=== PATIENT | female | born 1945 | race Caucasian/White ===

== ENCOUNTER 2023-08-27 17:39 | Inpatient (IN) | payer MEDICARE, BC ==
[~2023-08-27] VITALS: Ht 152.4 cm; Wt 41.7 kg
[2023-08-27 19:38] LABS: BASOPHILS % (AUTO) 0.6 % (0.0-2.0); EOSINOPHILS # (AUTO) 0.1 K/uL (0.0-0.7); EOSINOPHILS % (AUTO) 2.2 % (0.0-6.0); HEMATOCRIT 40 % (33-45); HEMOGLOBIN 13.3 g/dL (11.5-14.8); LYMPHOCYTES # (AUTO) 1.2 K/uL (0.8-4.8); LYMPHOCYTES % (AUTO) 29.3 % (20.0-44.0); MEAN CORPUSCULAR HEMOGLOBIN 32 PG (26.0-33.0); MEAN CORPUSCULAR HGB CONC 34 g/dl (31.0-36.0); MEAN CORPUSCULAR VOLUME 96 fL (82-100); MONOCYTES # (AUTO) 0.4 K/uL (0.1-1.30); NEUTROPHILS # (AUTO) 2.3 K/uL (1.8-8.9); NEUTROPHILS % (AUTO) 57.9 % (43.0-81.0); PLATELET COUNT (AUTO) 125 K/uL (150-450); RED CELL DISTRIBUTION WIDTH 13.4 % (11.5-15.0)
[2023-08-27 19:44] LABS: CARBON DIOXIDE 30 mmol/L (21-32); CHLORIDE 107 mmol/L (98-107); GLUCOSE 122 mg/dL (74-106); POTASSIUM 3.9 mmol/L (3.5-5.1); SODIUM SERUM 140 mmol/L (136-145); UREA NITROGEN, BLOOD 34 mg/dL (7-18)
[2023-08-27 19:50] LABS: ALANINE AMINOTRANSFERASE 24 U/L (12-78); ALBUMIN 3.3 g/dL (3.4-5.0); ALCOHOL, BLOOD < 3 mg/dL (0-10); ALKALINE PHOSPHATASE 60 U/L (46-116); ASPARTATE AMINOTRANSFERASE 20 U/L (15-37); BILIRUBIN,DIRECT 0.1 mg/dL (0.0-0.2); BILIRUBIN,TOTAL 0.3 mg/dL (0.2-1.0); TOTAL PROTEIN, SERUM 6.8 g/dL (6.4-8.2)
[2023-08-27 19:52] LABS: APPEARANCE,URINE Clear (CLEAR); BILIRUBIN,URINE Negative (NEGATIVE); BLOOD, URINE Moderate Ery/uL (NEGATIVE); COLOR,URINE YELLOW (YELLOW); KETONES,URINE 15 mg/dL (NEGATIVE); LEUKOCYTE ESTERASE ,URINE Negative (NEGATIVE); NITRITE, URINE Negative (NEGATIVE); PH,URINE 5.5 (5.0-8.0); PROTEIN,URINE Negative (NEGATIVE); UGLUCOSE Negative (NEGATIVE); UROBILINOGEN,URINE 0.2 EU/dL (0.2)
[2023-08-27 19:53] LABS: ACETAMINOPHEN 0 ug/ml (10-30); SALICYLATE 0.5 mg/dL (2.8-20.0)
[2023-08-27 19:59] LABS: AMPHETAMINE, URINE NEGATIVE (NEGATIVE); BARBITURATE, URINE NEGATIVE (NEGATIVE); BENZODIAZEPINE, URINE NEGATIVE (NEGATIVE); CANNABINOID, URINE NEGATIVE (NEGATIVE); COCCAINE, URINE NEGATIVE (NEGATIVE); OPIATE, URINE NEGATIVE (NEGATIVE); PHENCYCLIDINE SCREEN,URINE NEGATIVE (NEGATIVE)
[2023-08-27 20:04] LABS: ADD URINE CULTURE NO; BACTERIA,URINE Few /HPF (None Seen); CALCIUM OXALATE CRYSTALS,UR Few /HPF (None Seen); SQUAMOUS EPITHELIAL CELL,UR Few /HPF (None Seen); WBC,URINE 0-2 /HPF (0-3)
[2023-08-27] MEDS ORDERED: ONDANSETRON 4 MG TAB.RAPDIS ONE (21:00)
[2023-08-27] MEDS: ONDANSETRON 4 MG TAB.RAPDIS SL ONE (21:01)
[2023-08-27] MEDS ORDERED: MAGN400O21 PO (22:06)
[2023-08-27] MEDS ORDERED: METF-440 PO (22:06)
[2023-08-27] MEDS ORDERED: MINE133E RC (22:06)
[2023-08-27] MEDS ORDERED: LEVO125T8 PO (22:06)
[2023-08-27] MEDS ORDERED: DIVA250T PO (22:06)
[2023-08-27] MEDS ORDERED: MELA3CAP2 PO (22:06)
[2023-08-27] MEDS ORDERED: MELO7.5T12 PO (22:06)
[2023-08-27] MEDS ORDERED: MIRT-121 PO (22:06)
[2023-08-27] MEDS ORDERED: BISA10SU61 RC (22:06)
[2023-08-27] MEDS ORDERED: ACETAMINOPHEN 325 MG TABLET PO PRN (23:30)
[2023-08-27] MEDS ORDERED: MAGNESIUM HYDROXIDE 30 ML UDC PO PRN (23:30)
[2023-08-27] MEDS ORDERED: VITA1TAB56 PO (23:36)
[2023-08-27] MEDS ORDERED: CYAN500T64 PO (23:37)
[2023-08-27] MEDS: BLOOD SUGAR DIAGNOSTIC 1 EACH STRIP IN ONE (23:40)
[2023-08-28 00:36] VITALS: BP 105/66; TEMP 98; O2SAT 98
[2023-08-28 04:19] VITALS: BP 105/66; TEMP 98.3; O2SAT 100
[2023-08-28 08:00] VITALS: BP_SYST 111; BP_SYST 125; BP_DIAS 63; BP_DIAS 71; TEMP 97.6; TEMP 97.7; O2SAT 95; O2SAT 96
[2023-08-28] MEDS: GLUCERNA SHAKE 237 ML CAN PO SCH (08:00)
[2023-08-28] MEDS: LEVOTHYROXINE SODIUM 125 MCG TABLET PO SCH (08:46)
[2023-08-28] MEDS: CYANOCOBALAMIN 500 MCG TABLET PO SCH (08:46)
[2023-08-28] MEDS: MELOXICAM 7.5 MG TABLET PO SCH (08:46)
[2023-08-28] MEDS: METFORMIN 500 MG TABLET PO SCH (08:46)
[2023-08-28 20:00] VITALS: BP 100/67; TEMP 98; O2SAT 100
[2023-08-28] MEDS: QUETIAPINE FUMARATE 25 MG TABLET PO SCH (21:10)
[2023-08-28] MEDS ORDERED: MIRTAZAPINE 15 MG TABLET PO SCH (22:00)
[2023-08-28] MEDS ORDERED: MELATONIN PO SCH (22:00)
[2023-08-29 07:50] LABS: BASOPHILS % (AUTO) 0.6 % (0.0-2.0); EOSINOPHILS # (AUTO) 0.1 K/uL (0.0-0.7); EOSINOPHILS % (AUTO) 2.1 % (0.0-6.0); HEMATOCRIT 38 % (33-45); HEMOGLOBIN 12.9 g/dL (11.5-14.8); LYMPHOCYTES # (AUTO) 1.3 K/uL (0.8-4.8); LYMPHOCYTES % (AUTO) 22.9 % (20.0-44.0); MEAN CORPUSCULAR HEMOGLOBIN 33 PG (26.0-33.0); MEAN CORPUSCULAR HGB CONC 34 g/dl (31.0-36.0); MEAN CORPUSCULAR VOLUME 97 fL (82-100); MONOCYTES # (AUTO) 0.5 K/uL (0.1-1.30); MONOCYTES % (AUTO) 9.4 % (2.0-12.0); NEUTROPHILS # (AUTO) 3.6 K/uL (1.8-8.9); PLATELET COUNT (AUTO) 106 K/uL (150-450); RED BLOOD CELL COUNT(AUTO) 3.89 MIL/uL (4.0-5.2); RED CELL DISTRIBUTION WIDTH 13.3 % (11.5-15.0); WHITE BLOOD COUNT (AUTO) 5.6 K/uL (4.3-11.0)
[2023-08-29 08:00] VITALS: BP 90/53; TEMP 97.7; O2SAT 98
[2023-08-29 08:06] LABS: CALCIUM, SERUM 8.3 mg/dL (8.5-10.1); CARBON DIOXIDE 28 mmol/L (21-32); CHLORIDE 107 mmol/L (98-107); CREATININE 0.6 mg/dL (0.6-1.3); GLUCOSE 79 mg/dL (74-106); POTASSIUM 3.9 mmol/L (3.5-5.1); SODIUM SERUM 143 mmol/L (136-145); UREA NITROGEN, BLOOD 26 mg/dL (7-18)
[2023-08-29 08:26] LABS: CHOLESTEROL 157 mg/dL (<200); HDL CHOLESTEROL 65 mg/dL (40-60); LDL 78 mg/dL (0-99); TRIGLYCERIDES 84 mg/dL (30-150)
[2023-08-29] MEDS: LIDOCAINE 5% (PATCH) 1 EA PATCH TP SCH (14:30)
[2023-08-29 16:00] VITALS: BP 139/62; TEMP 97.6; O2SAT 100
[2023-08-29 20:30] VITALS: BP 128/69; TEMP 98; O2SAT 99
[2023-08-29] MEDS: OXCARBAZEPINE 150 MG TABLET PO SCH (21:00)
[2023-08-30 08:00] VITALS: BP 96/61; TEMP 97.5; O2SAT 98
[2023-08-30 16:00] VITALS: BP 97/58; TEMP 98.3; O2SAT 98
[2023-08-30 20:31] VITALS: BP 102/59; TEMP 97.7; O2SAT 98
[2023-08-30] MEDS: ZOLPIDEM TARTRATE 5 MG TABLET PO PRN (21:37)
[2023-08-31 08:00] VITALS: BP 110/73; TEMP 98; O2SAT 96
[2023-08-31] MEDS: OLANZAPINE 10 MG VIAL IM STA (13:23)
[2023-08-31] MEDS: OXCARBAZEPINE 150 MG TABLET PO SCH (14:00)
[2023-08-31] MEDS: QUETIAPINE FUMARATE 25 MG TABLET PO PRN (14:44)
[2023-08-31 16:00] VITALS: BP 100/61; TEMP 97.9; O2SAT 98
[2023-08-31 20:00] VITALS: BP 98/65; TEMP 98.1; O2SAT 99
[2023-09-01 08:00] VITALS: BP 110/78; TEMP 98.7; O2SAT 98
[2023-09-01] MEDS: OLANZAPINE 10 MG VIAL IM STA (13:10)
[2023-09-01 16:00] VITALS: BP 99/51; TEMP 98.6; O2SAT 99
[2023-09-01 20:32] VITALS: BP 128/70; TEMP 98.1; O2SAT 98
[2023-09-02 08:00] VITALS: BP 132/63; TEMP 97.9; O2SAT 97
[2023-09-02] MEDS: QUETIAPINE FUMARATE 25 MG TABLET PO SCH (08:19)
[2023-09-02 16:00] VITALS: BP 110/55; TEMP 98.6; O2SAT 100
[2023-09-02 20:36] VITALS: BP 146/55; TEMP 98.2; O2SAT 97
[2023-09-03 08:00] VITALS: BP 136/69; TEMP 98; O2SAT 97
[2023-09-03 16:00] VITALS: BP 120/65; TEMP 98; O2SAT 99
[2023-09-03 20:00] VITALS: BP 125/70; TEMP 98.2; O2SAT 98
[2023-09-04 08:00] VITALS: BP 105/58; TEMP 97.8; O2SAT 100
[2023-09-04 16:00] VITALS: BP 119/68; TEMP 98; O2SAT 98
[2023-09-04 20:00] VITALS: BP 118/52; TEMP 97.8; O2SAT 97
[2023-09-05 08:00] VITALS: BP 113/59; TEMP 97.8; O2SAT 99
[2023-09-05] MEDS: QUETIAPINE FUMARATE 25 MG TABLET PO SCH (08:55)
[2023-09-05 10:16] LABS: BASOPHILS % (AUTO) 0.8 % (0.0-2.0); EOSINOPHILS # (AUTO) 0.1 K/uL (0.0-0.7); EOSINOPHILS % (AUTO) 3.4 % (0.0-6.0); HEMATOCRIT 40 % (33-45); HEMOGLOBIN 13.6 g/dL (11.5-14.8); LYMPHOCYTES # (AUTO) 0.8 K/uL (0.8-4.8); LYMPHOCYTES % (AUTO) 21.1 % (20.0-44.0); MEAN CORPUSCULAR HEMOGLOBIN 33 PG (26.0-33.0); MEAN CORPUSCULAR HGB CONC 34 g/dl (31.0-36.0); MEAN CORPUSCULAR VOLUME 98 fL (82-100); MONOCYTES # (AUTO) 0.3 K/uL (0.1-1.30); MONOCYTES % (AUTO) 7.9 % (2.0-12.0); NEUTROPHILS # (AUTO) 2.5 K/uL (1.8-8.9); NEUTROPHILS % (AUTO) 66.8 % (43.0-81.0); PLATELET COUNT (AUTO) 119 K/uL (150-450); RED BLOOD CELL COUNT(AUTO) 4.12 MIL/uL (4.0-5.2); WHITE BLOOD COUNT (AUTO) 3.7 K/uL (4.3-11.0)
[2023-09-05 16:20] VITALS: BP 120/97; TEMP 97.7; O2SAT 98
[2023-09-05 20:00] VITALS: BP 107/53; TEMP 97.6; O2SAT 96
[2023-09-05] MEDS: OXCARBAZEPINE 150 MG TABLET PO SCH (21:02)
[2023-09-06 08:00] VITALS: BP 151/60; TEMP 98; O2SAT 98
[2023-09-06 16:08] VITALS: BP 103/52; TEMP 97.9; O2SAT 97
[2023-09-06 20:35] VITALS: BP 115/53; TEMP 98; O2SAT 97
[2023-09-06] MEDS: MAG HYDROX/AL HYDROX/SIMETH 30 ML UDC PO PRN (23:13)
[2023-09-07] MEDS: ONDANSETRON HCL/PF 4 MG/2 ML VIAL IM ONE
[2023-09-07] MEDS ORDERED: ONDANSETRON HCL 4 MG/5 ML SOLUTION PO PRN
[2023-09-07] MEDS: ONDANSETRON 4 MG TAB.RAPDIS PO PRN (00:33)
[2023-09-07] MEDS: BLOOD SUGAR DIAGNOSTIC 1 EACH STRIP IN ONE (01:09)
[2023-09-07 01:19] LABS: BASOPHILS % (AUTO) 0.3 % (0.0-2.0); EOSINOPHILS # (AUTO) 0.1 K/uL (0.0-0.7); HEMATOCRIT 36 % (33-45); LYMPHOCYTES # (AUTO) 0.7 K/uL (0.8-4.8); LYMPHOCYTES % (AUTO) 13.5 % (20.0-44.0); MEAN CORPUSCULAR HEMOGLOBIN 33 PG (26.0-33.0); MEAN CORPUSCULAR HGB CONC 34 g/dl (31.0-36.0); MEAN CORPUSCULAR VOLUME 98 fL (82-100); MONOCYTES # (AUTO) 0.4 K/uL (0.1-1.30); MONOCYTES % (AUTO) 7.7 % (2.0-12.0); NEUTROPHILS # (AUTO) 4.3 K/uL (1.8-8.9); NEUTROPHILS % (AUTO) 77.5 % (43.0-81.0); PLATELET COUNT (AUTO) 112 K/uL (150-450); RED BLOOD CELL COUNT(AUTO) 3.63 MIL/uL (4.0-5.2); RED CELL DISTRIBUTION WIDTH 14.2 % (11.5-15.0); WHITE BLOOD COUNT (AUTO) 5.5 K/uL (4.3-11.0)
[2023-09-07 01:31] LABS: CALCIUM, SERUM 8.4 mg/dL (8.5-10.1); CARBON DIOXIDE 25 mmol/L (21-32); CHLORIDE 105 mmol/L (98-107); CREATININE 0.8 mg/dL (0.6-1.3); GLUCOSE 206 mg/dL (74-106); POTASSIUM 3.6 mmol/L (3.5-5.1); SODIUM SERUM 141 mmol/L (136-145); UREA NITROGEN, BLOOD 32 mg/dL (7-18)
[2023-09-07] MEDS ORDERED: IV NS 0.9% 1,000 ML BAG IV ONE (02:30)
[2023-09-07] MEDS: IV NS 0.9% 1,000 ML BAG IV ONE (02:33)
[2023-09-07] MEDS ORDERED: DoBUTamine 500 MG/250 ML PIGGYBACK IV ONE (03:00)
[2023-09-07] MEDS ORDERED: IV NS 0.9% 1,000 ML IV SCH (03:00)
[2023-09-07] MEDS ORDERED: MAG30ORA PO (07:57)
[2023-09-07] MEDS ORDERED: QUET25TA PO ×2 (07:57)
[2023-09-07] MEDS ORDERED: OXCA150T13 PO (07:57)
[2023-09-07] MEDS ORDERED: LIDO30AD10 TP (07:57)
[2023-09-07] MEDS ORDERED: ACET-868 PO (07:57)
[2023-09-07] MEDS ORDERED: ZOLP5TAB2 PO (07:57)
[2023-09-07] MEDS ORDERED: NORM10004 IV (07:57)
[2023-09-07] MEDS ORDERED: ONDA4TAB5 PO (07:57)
[2023-09-07] MEDS ORDERED: NUT.237L28 PO (07:57)
== END 2023-09-07 03:20 | disposition short-term general hospital (02) | DRG 885 ==
LOC: EDUNIT# 17:39 → ER 17:58 → GPS 22:54
PROVIDERS: ADMIT Psychiatry & Neurology Psychiatry; ATTEND Nurse Practitioner Family
DX: F39 Unspecified mood [affective] disorder (principal); E44.1 Mild protein-calorie malnutrition; R64 Cachexia; Z68.1 Body mass index [BMI] 19.9 or less, adult; G93.40 Encephalopathy, unspecified; F03.911 Unspecified dementia, unspecified severity, with agitation; F03.93 Unspecified dementia, unspecified severity, with mood disturbance; F03.918 Unspecified dementia, unspecified severity, with other behavioral disturbance; F29 Unspecified psychosis not due to a substance or known physiological condition; E03.9 Hypothyroidism, unspecified; M19.90 Unspecified osteoarthritis, unspecified site; E11.9 Type 2 diabetes mellitus without complications; E88.09 Other disorders of plasma-protein metabolism, not elsewhere classified; Z87.891 Personal history of nicotine dependence; Z88.5 Allergy status to narcotic agent; Z20.822 Contact with and (suspected) exposure to COVID-19; Z73.6 Limitation of activities due to disability; F32.9 Major depressive disorder, single episode, unspecified
CPT/HCPCS: 36415; 71111-TC; 80048-TC; 80061-TC; 80076-TC; 81001; 84443-TC; 85025-TC; 87081-TC; 97112-TC; 97116-TC; 97530-TC; A4223; G0480; J2405; J3490; J7030; Q0162

== ENCOUNTER 2023-09-07 02:39 | Inpatient (IN) | payer MEDICARE, BC ==
[2023-09-07] VITALS (35 sets, daily range): BP systolic 98–147; BP diastolic 36–106; TEMP 97.2–98.9; O2SAT 92–100
[~2023-09-07] VITALS: Ht 152.4 cm; Wt 44.6 kg
[~2023-09-07 02:39] MED LIST: BISA10SU61 RC; CYAN500T64 PO; LEVO125T8 PO; MAGN400O21 PO; MELO7.5T12 PO; METF-440 PO; MINE133E RC; VITA1TAB56 PO
[2023-09-07] MEDS ORDERED: MAG HYDROX/AL HYDROX/SIMETH 30 ML UDC PO PRN (03:30)
[2023-09-07] MEDS ORDERED: Z GUARD REMEDY 4 OZ OINT TP PRN (03:30)
[2023-09-07] MEDS ORDERED: ONDANSETRON HCL/PF 4 MG/2 ML VIAL IVP PRN (03:30)
[2023-09-07] MEDS ORDERED: DEXTROSE 50%-WATER 50 ML DISP.SYRIN IV PRN (03:30)
[2023-09-07] MEDS ORDERED: ACETAMINOPHEN 325 MG TABLET PO PRN (03:30)
[2023-09-07] MEDS ORDERED: MAGNESIUM HYDROXIDE 30 ML UDC PO PRN ×2 (03:30)
[2023-09-07] MEDS ORDERED: DoBUTamine 500 MG/250 ML PIGGYBACK IV ONE (03:30)
[2023-09-07] MEDS: IV NS 0.9% 1,000 ML IV SCH (03:44)
[2023-09-07] MEDS: DOBUTamine 500 MG in IV D5W 210 ML IV PRN (03:59)
[2023-09-07] MEDS: DoBUTamine 500 MG/250 ML PIGGYBACK IV ONE (04:04)
[2023-09-07 04:05] LABS: ALANINE AMINOTRANSFERASE 144 U/L (12-78); ALBUMIN 2.8 g/dL (3.4-5.0); ALKALINE PHOSPHATASE 118 U/L (46-116); ASPARTATE AMINOTRANSFERASE 73 U/L (15-37); BILIRUBIN,DIRECT 0.3 mg/dL (0.0-0.2); BILIRUBIN,TOTAL 0.5 mg/dL (0.2-1.0); TOTAL PROTEIN, SERUM 6.3 g/dL (6.4-8.2)
[2023-09-07] MEDS: BLOOD SUGAR DIAGNOSTIC 1 EACH STRIP IN SCH (07:30)
[2023-09-07] MEDS ORDERED: ZOLP5TAB2 PO (07:57)
[2023-09-07] MEDS ORDERED: ONDA4TAB5 PO (07:57)
[2023-09-07] MEDS ORDERED: QUET25TA PO ×2 (07:57)
[2023-09-07] MEDS ORDERED: OXCA150T13 PO (07:57)
[2023-09-07] MEDS ORDERED: LIDO30AD10 TP (07:57)
[2023-09-07] MEDS ORDERED: NUT.237L28 PO (07:57)
[2023-09-07] MEDS ORDERED: ACET-868 PO (07:57)
[2023-09-07] MEDS ORDERED: NORM10004 IV (07:57)
[2023-09-07] MEDS ORDERED: MAG30ORA PO (07:57)
[2023-09-07] MEDS: MELOXICAM 7.5 MG TABLET PO SCH (08:00)
[2023-09-07] MEDS: LEVOTHYROXINE SODIUM 125 MCG TABLET PO SCH (08:00)
[2023-09-07] MEDS: OLANZAPINE 10 MG VIAL IM ONE (08:13)
[2023-09-07] MEDS: CYANOCOBALAMIN 500 MCG TABLET PO SCH (09:30)
[2023-09-07] MEDS: PANTOPRAZOLE 40 MG VIAL IV SCH (09:30)
[2023-09-07] MEDS: VITAMIN B COMP W-C 1 TAB TABLET PO SCH (09:30)
[2023-09-07] MEDS: IV NS 0.9% 1,000 ML IV PRN (11:13)
[2023-09-07 15:07] LABS: MAGNESIUM 2.3 mg/dL (1.8-2.4); PHOSPHORUS 3.2 mg/dL (2.5-4.9)
[2023-09-07] MEDS: INSULIN REGULAR, HUMAN 100 UNIT/ML 3 ML VIAL SQ PRN (22:31)
[2023-09-08] VITALS (20 sets, daily range): BP systolic 123–160; BP diastolic 53–97; TEMP 98.1–98.9; O2SAT 89–100
[2023-09-08 04:41] LABS: BASOPHILS % (AUTO) 0.6 % (0.0-2.0); EOSINOPHILS # (AUTO) 0.2 K/uL (0.0-0.7); HEMATOCRIT 35 % (33-45); HEMOGLOBIN 12.2 g/dL (11.5-14.8); LYMPHOCYTES # (AUTO) 1.4 K/uL (0.8-4.8); LYMPHOCYTES % (AUTO) 20.5 % (20.0-44.0); MEAN CORPUSCULAR HEMOGLOBIN 34 PG (26.0-33.0); MEAN CORPUSCULAR HGB CONC 35 g/dl (31.0-36.0); MEAN CORPUSCULAR VOLUME 97 fL (82-100); MONOCYTES # (AUTO) 0.6 K/uL (0.1-1.30); MONOCYTES % (AUTO) 8.1 % (2.0-12.0); NEUTROPHILS # (AUTO) 4.7 K/uL (1.8-8.9); NEUTROPHILS % (AUTO) 67.8 % (43.0-81.0); PLATELET COUNT (AUTO) 118 K/uL (150-450); RED BLOOD CELL COUNT(AUTO) 3.64 MIL/uL (4.0-5.2); RED CELL DISTRIBUTION WIDTH 14.6 % (11.5-15.0); WHITE BLOOD COUNT (AUTO) 6.9 K/uL (4.3-11.0)
[2023-09-08 04:57] LABS: CALCIUM, SERUM 8.1 mg/dL (8.5-10.1); CARBON DIOXIDE 24 mmol/L (21-32); CHLORIDE 110 mmol/L (98-107); CREATININE 0.8 mg/dL (0.6-1.3); GLUCOSE 85 mg/dL (74-106); PHOSPHORUS 2.3 mg/dL (2.5-4.9); POTASSIUM 3.5 mmol/L (3.5-5.1); SODIUM SERUM 143 mmol/L (136-145); UREA NITROGEN, BLOOD 18 mg/dL (7-18)
[2023-09-08] MEDS ORDERED: QUETIAPINE FUMARATE 25 MG TABLET PO PRN (21:30)
[2023-09-08] MEDS: K PHOS NEUTRAL 250 MG TABLET PO ONE (21:39)
[2023-09-09 04:00] VITALS: BP 132/55; TEMP 98.2; O2SAT 98
[2023-09-09 06:51] LABS: BASOPHILS % (AUTO) 0.7 % (0.0-2.0); EOSINOPHILS # (AUTO) 0.1 K/uL (0.0-0.7); EOSINOPHILS % (AUTO) 1.8 % (0.0-6.0); HEMATOCRIT 34 % (33-45); HEMOGLOBIN 11.4 g/dL (11.5-14.8); LYMPHOCYTES # (AUTO) 0.8 K/uL (0.8-4.8); LYMPHOCYTES % (AUTO) 16.4 % (20.0-44.0); MEAN CORPUSCULAR HEMOGLOBIN 33 PG (26.0-33.0); MEAN CORPUSCULAR HGB CONC 34 g/dl (31.0-36.0); MEAN CORPUSCULAR VOLUME 98 fL (82-100); MONOCYTES # (AUTO) 0.4 K/uL (0.1-1.30); MONOCYTES % (AUTO) 8.7 % (2.0-12.0); NEUTROPHILS # (AUTO) 3.7 K/uL (1.8-8.9); NEUTROPHILS % (AUTO) 72.4 % (43.0-81.0); PLATELET COUNT (AUTO) 105 K/uL (150-450); RED BLOOD CELL COUNT(AUTO) 3.48 MIL/uL (4.0-5.2); RED CELL DISTRIBUTION WIDTH 14.3 % (11.5-15.0); WHITE BLOOD COUNT (AUTO) 5.1 K/uL (4.3-11.0)
[2023-09-09 07:34] LABS: CALCIUM, SERUM 8.1 mg/dL (8.5-10.1); CARBON DIOXIDE 26 mmol/L (21-32); CHLORIDE 110 mmol/L (98-107); CREATININE 0.4 mg/dL (0.6-1.3); GLUCOSE 78 mg/dL (74-106); MAGNESIUM 1.9 mg/dL (1.8-2.4); PHOSPHORUS 2.8 mg/dL (2.5-4.9); SODIUM SERUM 143 mmol/L (136-145); UREA NITROGEN, BLOOD 6 mg/dL (7-18)
[2023-09-09] MEDS: PANTOPRAZOLE 40 MG TABLET.DR PO SCH (07:59)
[2023-09-09] MEDS: OXCARBAZEPINE 150 MG TABLET PO SCH (08:30)
[2023-09-09] MEDS: POTASSIUM CHLORIDE 20 MEQ TAB.PRT.SR PO SCH (09:51)
[2023-09-09 13:00] VITALS: BP 138/66; TEMP 97.7; O2SAT 95
[2023-09-09] MEDS ORDERED: QUETIAPINE FUMARATE 25 MG TABLET PO SCH (21:00)
== END 2023-09-09 15:50 | DRG 309 ==
LOC: ICU 02:39 → MEDSG1 09-08 17:55
PROVIDERS: ADMIT Nurse Practitioner Acute Care; ATTEND Internal Medicine
DX: R00.1 Bradycardia, unspecified (principal); E44.1 Mild protein-calorie malnutrition; F03.93 Unspecified dementia, unspecified severity, with mood disturbance; F03.92 Unspecified dementia, unspecified severity, with psychotic disturbance; G93.40 Encephalopathy, unspecified; Z68.1 Body mass index [BMI] 19.9 or less, adult; F03.918 Unspecified dementia, unspecified severity, with other behavioral disturbance; E11.9 Type 2 diabetes mellitus without complications; E03.9 Hypothyroidism, unspecified; M19.90 Unspecified osteoarthritis, unspecified site; F39 Unspecified mood [affective] disorder; E88.09 Other disorders of plasma-protein metabolism, not elsewhere classified; F29 Unspecified psychosis not due to a substance or known physiological condition; F32.9 Major depressive disorder, single episode, unspecified; R74.01 Elevation of levels of liver transaminase levels; Z20.822 Contact with and (suspected) exposure to COVID-19
CPT/HCPCS: 36415; 71045-TC; 80048-TC; 80076-TC; 82962-TC; 83605-TC; 83735-TC; 84100-TC; 84439-TC; 84484-TC; 85025-TC; 87040-TC; 87081-TC; 87086-TC; 93307-TC; A4223; G0378; J1250; J1815; J2470; J3490; J7030

== ENCOUNTER 2023-09-09 15:43 | Inpatient (IN) | payer MEDICARE, BC ==
[~2023-09-09] VITALS: Ht 152.4 cm; Wt 44.5 kg
[~2023-09-09 15:43] MED LIST changes: +ACET-868 PO; -BISA10SU61 RC; -LEVO125T8 PO; +LIDO30AD10 TP; +MAG30ORA PO; -MINE133E RC; +NUT.237L28 PO; +ONDA4TAB5 PO; +OXCA150T13 PO; +QUET25TA PO; +ZOLP5TAB2 PO
[2023-09-09] MEDS ORDERED: ZOLPIDEM TARTRATE 5 MG TABLET PO PRN ×2 (17:30→19:30)
[2023-09-09] MEDS ORDERED: QUETIAPINE FUMARATE 25 MG TABLET PO PRN ×2 (17:30→19:30)
[2023-09-09] MEDS ORDERED: MAGNESIUM HYDROXIDE 30 ML UDC PO PRN ×2 (17:30→19:30)
[2023-09-09] MEDS: BLOOD SUGAR DIAGNOSTIC 1 EACH STRIP IN ONE (17:46)
[2023-09-09] MEDS ORDERED: ONDANSETRON 4 MG TAB.RAPDIS PO PRN (19:30)
[2023-09-09] MEDS ORDERED: ACETAMINOPHEN 325 MG TABLET PO PRN (19:30)
[2023-09-09] MEDS ORDERED: MAG HYDROX/AL HYDROX/SIMETH 30 ML UDC PO PRN (19:30)
[2023-09-09 20:00] VITALS: BP 125/65; TEMP 98.1; O2SAT 98
[2023-09-09 20:26] VITALS: BP 125/65; TEMP 98.1; O2SAT 98
[2023-09-09] MEDS: ACETAMINOPHEN 325 MG TABLET PO PRN (23:35)
[2023-09-10 07:48] LABS: ALANINE AMINOTRANSFERASE 110 U/L (12-78); ALBUMIN 2.5 g/dL (3.4-5.0); ALKALINE PHOSPHATASE 104 U/L (46-116); ASPARTATE AMINOTRANSFERASE 47 U/L (15-37); BILIRUBIN,TOTAL 0.8 mg/dL (0.2-1.0); CALCIUM, SERUM 8.3 mg/dL (8.5-10.1); CARBON DIOXIDE 24 mmol/L (21-32); CHLORIDE 112 mmol/L (98-107); CREATININE 0.7 mg/dL (0.6-1.3); GLUCOSE 82 mg/dL (74-106); SODIUM SERUM 145 mmol/L (136-145); TOTAL PROTEIN, SERUM 5.8 g/dL (6.4-8.2); UREA NITROGEN, BLOOD 9 mg/dL (7-18)
[2023-09-10 07:50] LABS: CHOLESTEROL 150 mg/dL (<200); HDL CHOLESTEROL 61 mg/dL (40-60); LDL 79 mg/dL (0-99); TRIGLYCERIDES 56 mg/dL (30-150)
[2023-09-10 08:00] VITALS: BP 137/58; TEMP 97.9; O2SAT 97
[2023-09-10] MEDS ORDERED: OXCARBAZEPINE 150 MG TABLET PO SCH (09:00)
[2023-09-10] MEDS: MELOXICAM 7.5 MG TABLET PO SCH (09:01)
[2023-09-10] MEDS: LIDOCAINE 5% (PATCH) 1 EA PATCH TP SCH (09:01)
[2023-09-10] MEDS: GLUCERNA SHAKE 237 ML CAN PO SCH (09:01)
[2023-09-10] MEDS: CYANOCOBALAMIN 500 MCG TABLET PO SCH (09:02)
[2023-09-10] MEDS: METFORMIN 500 MG TABLET PO SCH (12:12)
[2023-09-10] MEDS: OXCARBAZEPINE 150 MG TABLET PO SCH (12:19)
[2023-09-10 16:00] VITALS: BP 150/83; TEMP 98.2; O2SAT 96
[2023-09-10] MEDS: POTASSIUM CHLORIDE 20 MEQ TAB.PRT.SR PO ONE (16:27)
[2023-09-10] MEDS: MAG HYDROX/AL HYDROX/SIMETH 30 ML UDC PO PRN (16:55)
[2023-09-10 17:33] LABS: CREATININE 0.8 mg/dL (0.6-1.3)
[2023-09-10 20:00] VITALS: BP 139/61; TEMP 98.3; O2SAT 100
[2023-09-10] MEDS: QUETIAPINE FUMARATE 25 MG TABLET PO SCH (20:52)
[2023-09-10] MEDS ORDERED: QUETIAPINE FUMARATE 25 MG TABLET PO SCH (21:00)
[2023-09-11 08:00] VITALS: BP 134/60; TEMP 98.2; O2SAT 98
[2023-09-11 16:00] VITALS: BP 97/66; TEMP 97.7; O2SAT 96
[2023-09-11 21:00] VITALS: BP 123/69; TEMP 98; O2SAT 98
[2023-09-12 08:00] VITALS: BP 105/59; TEMP 98.2; O2SAT 96
[2023-09-12 16:00] VITALS: BP 136/66; TEMP 98.3; O2SAT 99
[2023-09-12 20:00] VITALS: BP 130/68; TEMP 98.1; O2SAT 98
[2023-09-13 06:52] LABS: BASOPHILS % (AUTO) 1.2 % (0.0-2.0); EOSINOPHILS # (AUTO) 0.2 K/uL (0.0-0.7); EOSINOPHILS % (AUTO) 7.2 % (0.0-6.0); HEMATOCRIT 33 % (33-45); HEMOGLOBIN 11.5 g/dL (11.5-14.8); LYMPHOCYTES % (AUTO) 29.2 % (20.0-44.0); MEAN CORPUSCULAR HEMOGLOBIN 34 PG (26.0-33.0); MEAN CORPUSCULAR HGB CONC 35 g/dl (31.0-36.0); MEAN CORPUSCULAR VOLUME 97 fL (82-100); MONOCYTES # (AUTO) 0.4 K/uL (0.1-1.30); MONOCYTES % (AUTO) 11.3 % (2.0-12.0); NEUTROPHILS # (AUTO) 1.7 K/uL (1.8-8.9); NEUTROPHILS % (AUTO) 51.1 % (43.0-81.0); PLATELET COUNT (AUTO) 122 K/uL (150-450); RED BLOOD CELL COUNT(AUTO) 3.41 MIL/uL (4.0-5.2); RED CELL DISTRIBUTION WIDTH 14.6 % (11.5-15.0); WHITE BLOOD COUNT (AUTO) 3.4 K/uL (4.3-11.0)
[2023-09-13 07:37] LABS: CALCIUM, SERUM 8.4 mg/dL (8.5-10.1); CARBON DIOXIDE 32 mmol/L (21-32); CHLORIDE 108 mmol/L (98-107); CREATININE 0.5 mg/dL (0.6-1.3); GLUCOSE 82 mg/dL (74-106); PHOSPHORUS 3.6 mg/dL (2.5-4.9); POTASSIUM 3.3 mmol/L (3.5-5.1); SODIUM SERUM 144 mmol/L (136-145); UREA NITROGEN, BLOOD 17 mg/dL (7-18)
[2023-09-13 08:00] VITALS: BP 131/57; TEMP 97.9; O2SAT 98
[2023-09-13] MEDS: POTASSIUM CHLORIDE 20 MEQ TAB.PRT.SR PO SCH (10:05)
[2023-09-13] MEDS: busPIRone 5 MG TABLET PO SCH (10:05)
[2023-09-13 16:00] VITALS: BP 109/52; TEMP 97.9; O2SAT 96
[2023-09-13 20:26] VITALS: BP 130/52; TEMP 97.9; O2SAT 98
[2023-09-14 08:00] VITALS: BP 130/48; TEMP 97.7; O2SAT 98
[2023-09-14 08:22] LABS: ALANINE AMINOTRANSFERASE 112 U/L (12-78); ALBUMIN 2.5 g/dL (3.4-5.0); ALKALINE PHOSPHATASE 109 U/L (46-116); ASPARTATE AMINOTRANSFERASE 59 U/L (15-37); BILIRUBIN,TOTAL 0.4 mg/dL (0.2-1.0); CALCIUM, SERUM 8.5 mg/dL (8.5-10.1); CARBON DIOXIDE 25 mmol/L (21-32); CHLORIDE 109 mmol/L (98-107); CREATININE 0.7 mg/dL (0.6-1.3); GLUCOSE 81 mg/dL (74-106); POTASSIUM 4.3 mmol/L (3.5-5.1); SODIUM SERUM 141 mmol/L (136-145); TOTAL PROTEIN, SERUM 5.9 g/dL (6.4-8.2); UREA NITROGEN, BLOOD 20 mg/dL (7-18)
[2023-09-14 16:00] VITALS: BP 106/52; TEMP 98.2; O2SAT 96
[2023-09-14 19:55] VITALS: BP 135/79; TEMP 98.2; O2SAT 99
[2023-09-14 20:42] VITALS: BP 135/79; TEMP 98.2; O2SAT 99
[2023-09-15 08:00] VITALS: BP 132/51; TEMP 97.7; O2SAT 94
== END 2023-09-15 13:55 | DRG 885 ==
LOC: GPS 15:43
PROVIDERS: ADMIT Psychiatry & Neurology Psychiatry; ATTEND Internal Medicine
DX: F39 Unspecified mood [affective] disorder (principal); E44.1 Mild protein-calorie malnutrition; Z68.1 Body mass index [BMI] 19.9 or less, adult; F03.92 Unspecified dementia, unspecified severity, with psychotic disturbance; F03.918 Unspecified dementia, unspecified severity, with other behavioral disturbance; F03.93 Unspecified dementia, unspecified severity, with mood disturbance; E03.9 Hypothyroidism, unspecified; E11.9 Type 2 diabetes mellitus without complications; E88.09 Other disorders of plasma-protein metabolism, not elsewhere classified; M19.90 Unspecified osteoarthritis, unspecified site; Z87.891 Personal history of nicotine dependence; Z20.822 Contact with and (suspected) exposure to COVID-19; F32.9 Major depressive disorder, single episode, unspecified; R74.01 Elevation of levels of liver transaminase levels; R00.1 Bradycardia, unspecified
CPT/HCPCS: 36415; 70450-TC; 80048-TC; 80053-TC; 80061-TC; 82565-TC; 82962-TC; 83735-TC; 84100-TC; 85025-TC; 97112-TC; 97116-TC; 97530-TC